=== PATIENT | male | born 1945 | race Two or more races ===

== ENCOUNTER 2017-12-18 13:10 | Emergency (ER) | payer MEDICARE, OTHER ==
[~2017-12-18] VITALS: Ht 175.3 cm; Wt 68.0 kg
[2017-12-18 13:25] VITALS: BP 134/78
== END 2017-12-18 14:56 | disposition home or self-care (01) ==
LOC: ER 13:14
DX: M47.892 Other spondylosis, cervical region (principal); M54.12 Radiculopathy, cervical region; J45.909 Unspecified asthma, uncomplicated; K21.9 Gastro-esophageal reflux disease without esophagitis
CPT/HCPCS: 72040; 93005

== ENCOUNTER 2021-10-30 05:09 | Emergency (ER) | payer OTHER, MEDICAID ==
[~2021-10-30] VITALS: Ht 172.7 cm; Wt 62.1 kg
[2021-10-30 06:52] LABS: Urine Bacteria NONE SEEN /hpf (None Seen); Urine Blood 1+ /uL (Negative); Urine Specific Gravity 1.017 (1.001-1.035); Urine Sperm PRESENT /hpf (None Seen); Urine WBC 134 /hpf (0 - 3)
[2021-10-30] MEDS ORDERED: SULF800T7 PO (07:21)
[2021-10-30] MEDS ORDERED: cefTRIAXone 1GM/50ML D5W 50 ML IV ONE (07:30)
[2021-10-30 07:38] VITALS: BP 123/75
== END 2021-10-30 08:34 | disposition home or self-care (01) ==
LOC: ER 05:09
DX: T83.098A Other mechanical complication of other urinary catheter, initial encounter (principal); N39.0 Urinary tract infection, site not specified; J45.909 Unspecified asthma, uncomplicated; K21.9 Gastro-esophageal reflux disease without esophagitis
CPT/HCPCS: 51702; 81001; 96365; 99284; J0696

== ENCOUNTER 2021-12-02 12:11 | Emergency (ER) | payer OTHER, MEDICAID ==
[~2021-12-02] VITALS: Ht 172.7 cm; Wt 62.4 kg
[~2021-12-02 12:11] MED LIST: SULF800T7 PO
[2021-12-02 12:55] VITALS: BP 127/76
== END 2021-12-02 13:06 | disposition home or self-care (01) ==
LOC: ER 12:17
DX: T83.031A Leakage of indwelling urethral catheter, initial encounter (principal); J45.909 Unspecified asthma, uncomplicated; E78.5 Hyperlipidemia, unspecified; K21.9 Gastro-esophageal reflux disease without esophagitis; Z87.891 Personal history of nicotine dependence; Z79.899 Other long term (current) drug therapy
CPT/HCPCS: 51702